=== PATIENT | female | born 1970 | race American Indian/Alaskan Native ===

== ENCOUNTER 2019-09-27 13:02 | Inpatient (IN) | payer MEDICAID ==
[2019-09-27] MEDS ORDERED: Sodium Chloride 0.9% 1,000 ML IV ONE (13:32)
--- NOTE | 2019-09-27 13:35 | EDM.PDOC ---
ED HPI GENERAL MEDICAL PROBLEM - General Chief Complaint: Diabetic Complaint Stated Complaint: DIABETIC COMPLICATIONS Time Seen by Provider: 09/27/19 13:20 Source of Information: Reports: Patient History Limitations: Reports: No Limitations - History of Present Illness INITIAL COMMENTS - FREE TEXT/NARRATIVE: This 49 yo female patient was sent to the ED by [facility] due to elevated blood sugar levels, medication non-compliance, and a UTI. According to the patient, she has not been feeling well for the past 1 1/2 weeks. The patient reports she last took her medications 4 days ago. The patient report she felt like she had a cold, but was not getting any better. The patient reports she currently feels dehydrated. The patient reports she has had a fever at home, but does not have a thermometer. The patient last checked her blood sugar last Thursday (patient reports it was "like 300 - 400" at that time). Duration: Week(s):, Constant, Getting Worse Location: Reports: Generalized Quality: Reports: Ache Severity: Moderate Improves with: Reports: None Worsens with: Reports: None Context: Reports: Other Associated Symptoms: Reports: No Other Symptoms - Related Data Allergies Allergy/AdvReac Type Severity Reaction Status Date / Time No Known Allergies Allergy Verified 09/27/19 13:08 Home Meds: Home Meds Insulin Detemir [Levemir Flextouch] 30 unit SQ BEDTIME 05/11/15 [History] Novalog Insulin 12 units SQ TID 05/11/15 [History] atorvaSTATin [Lipitor] 15 mg PO BEDTIME 09/27/19 [History] lisinopriL [Lisinopril] 10 mg PO DAILY 09/27/19 [History] metFORMIN HCl [Metformin HCl ER] 1,000 mg PO DAILY 09/27/19 [History] Past Medical History HEENT History: Reports: Impaired Vision Cardiovascular History: Reports: None Respiratory History: Reports: None Gastrointestinal History: Reports: None Genitourinary History: Reports: None FIGHTER PILOT History: Reports: None Musculoskeletal History: Reports: None Neurological History: Reports: None Psychiatric History: Reports: None Endocrine/Metabolic History: Reports: Diabetes, Type II Hematologic History: Reports: None Immunologic History: Reports: None Oncologic (Cancer) History: Reports: None Dermatologic History: Reports: None - Infectious Disease History Infectious Disease History: Reports: None - Past Surgical History Head Surgeries/Procedures: Reports: None Social & Family History - Family History Family Medical History: Noncontributory - Tobacco Use Smoking Status *Q: Never Smoker Second Hand Smoke Exposure: No - Caffeine Use Caffeine Use: Reports: Tea - Recreational Drug Use Recreational Drug Use: No ED ROS GENERAL - Review of Systems Review Of Systems: Comprehensive ROS is negative, except as noted in HPI. ED EXAM GENERAL NO PERIP PULSE - Physical Exam Exam: See Below Exam Limited By: No Limitations General Appearance: Alert, WD/WN, Moderate Distress Eye Exam: Bilateral Eye: EOMI, Normal Inspection, PERRL Ears: Normal External Exam, Normal Canal, Hearing Grossly Normal, Normal TMs Nose: Normal Inspection, Normal Mucosa, No Blood Throat/Mouth: Normal Inspection, Normal Lips, Normal Teeth, Normal Gums, Normal Oropharynx, Normal Voice, No Airway Compromise Head: Atraumatic, Normocephalic Neck: Normal Inspection, Supple, Non-Tender, Full Range of Motion Respiratory/Chest: No Respiratory Distress, Lungs Clear, Normal Breath Sounds, No Accessory Muscle Use, Chest Non-Tender Cardiovascular: Normal Peripheral Pulses, Regular Rate, Rhythm, No Edema, No Gallop, No JVD, No Murmur, No Rub GI/Abdominal: Normal Bowel Sounds, Soft, Non-Tender, No Organomegaly, No Distention, No Abnormal Bruit, No Mass (Female) Exam: Deferred Rectal (Female) Exam: Deferred Back Exam: Normal Inspection, Full Range of Motion, NT Extremities: Normal Inspection, Normal Range of Motion, Non-Tender, Normal Capillary Refill, No Pedal Edema Neurological: Alert, Oriented, CN II-XII Intact, Normal Cognition, Normal Gait, Normal Reflexes, No Motor/Sensory Deficits Psychiatric: Normal Affect, Normal Mood Skin Exam: Warm, Dry, Intact, Normal Color, No Rash Lymphatic: No Adenopathy Course - Vital Signs Last Recorded V/S: Last Vital Signs Temp 36.2 C 09/27/19 13:11 Pulse 100 09/27/19 13:11 Resp 16 09/27/19 13:11 BP 112/80 09/27/19 13:11 Pulse Ox 100 09/27/19 13:11 - Orders/Labs/Meds Orders: Active Orders 24 hr Category Date Time Status Admission Diagnosis [ADT] Urgent ADT 09/27/19 14:26 Ordered Admission Status [Patient Status] [ADT] Routine ADT 09/27/19 14:26 Ordered CULTURE BLOOD [BC] Stat Lab 09/27/19 13:23 Results CULTURE URINE [RM] Stat Lab 09/27/19 13:23 Received Sodium Chloride 0.9% [Normal Saline] 1,000 ml Med 09/27/19 13:32 Active IV .BOLUS Medication Orders Sodium Chloride (Normal Saline) 1,000 mls @ 999 mls/hr IV .BOLUS ONE Stop: 09/27/19 14:32 Last Admin: 09/27/19 13:41 Dose: 999 mls/hr Labs: Laboratory Tests 09/27/19 09/27/19 09/27/19 Range/Units 13:23 13:23 13:23 WBC (5.0-10.0) 10^3/uL RBC (4.2-5.4) 10^6/uL Hgb (12.0-16.0) g/dL Hct (37.0-47.0) % MCV (80-100) fL MCH (27.0-34.0) pg MCHC (33.0-35.0) g/dL Plt Count (150-450) 10^3/uL Neut % (Auto) (42.2-75.2) % Lymph % (Auto) (20.5-50.1) % Petroleum % (Auto) (2-8) % Eos % (Auto) (1.0-3.0) % Baso % (Auto) (0.0-1.0) % ABG pH (7.35-7.45) ABG pCO2 (35-45) mmHg ABG pO2 (70-100) mmHg ABG HCO3 (22-26) mmol/L ABG O2 Saturation (95-100) % ABG Base Excess ((-2)-(+3)) mmol/L Chin Test O2 Delivery Device Oxygen Flow Rate Sodium (135-145) mmol/L Potassium (3.6-5.0) mmol/L Chloride (101-111) mmol/L Carbon Dioxide (21.0-31.0) mmol/L Anion Gap BUN (7-18) mg/dL Creatinine (0.6-1.3) mg/dL Est Cr Clr Drug Dosing mL/min Estimated GFR (MDRD) BUN/Creatinine Ratio Glucose (74-105) mg/dL Lactic Acid 1.5 (0.5-2.2) mmol/L Calcium (8.4-10.2) mg/dl Total Bilirubin (0.2-1.0) mg/dL AST (10-42) IU/L ALT (10-60) IU/L Alkaline Phosphatase (42-121) IU/L Total Protein (6.7-8.2) g/dl Albumin (3.2-5.5) g/dl Globulin Albumin/Globulin Ratio Urine Color Yellow (YELLOW) Urine Appearance Cloudy (CLEAR) Urine pH 5.5 (5.0-9.0) Ur Specific [place] 1.010 (1.005-1.030) Urine Protein Trace H (NEGATIVE) Urine Glucose (UA) 500 H (NEGATIVE) Urine Ketones >=160 H (NEGATIVE) Urine Occult Blood Moderate H (NEGATIVE) Urine Nitrite Positive H (NEGATIVE) Urine Bilirubin Negative (NEGATIVE) Urine Urobilinogen 0.2 (0.2-1.0) mg/dL Ur Leukocyte Esterase Small H (NEGATIVE) Urine RBC 5-10 H /HPF Urine WBC Semi-packed H (0-5/HPF) /HPF Ur Epithelial Cells Rare (NOT SEEN) /HPF Urine Bacteria Moderate H (0-FEW/HPF) /HPF Urine Mucus Rare (NOT SEEN) /LPF Urine Opiates Screen Negative (NEGATIVE) Ur Oxycodone Screen Negative (NEGATIVE) Urine Methadone Screen Negative (NEGATIVE) Ur Barbiturates Screen Negative (NEGATIVE) U Tricyclic Antidepress Negative (NEGATIVE) Ur Phencyclidine Scrn Negative (NEGATIVE) Ur Amphetamine Screen Negative (NEGATIVE) U Methamphetamines Scrn Negative (NEGATIVE) Urine MDMA Screen Negative (NEGATIVE) U Benzodiazepines Scrn Negative (NEGATIVE) Urine Cocaine Screen Negative (NEGATIVE) U Marijuana (THC) Screen Negative (NEGATIVE) Ketones 09/27/19 09/27/19 09/27/19 Range/Units 13:23 13:23 13:23 WBC 18.6 H (5.0-10.0) 10^3/uL RBC 4.26 (4.2-5.4) 10^6/uL Hgb 10.8 L (12.0-16.0) g/dL Hct 32.2 L (37.0-47.0) % MCV 75.6 L (80-100) fL MCH 25.4 L (27.0-34.0) pg MCHC 33.5 (33.0-35.0) g/dL Plt Count 392 (150-450) 10^3/uL Neut % (Auto) 84.4 H (42.2-75.2) % Lymph % (Auto) 8.7 L (20.5-50.1) % Petroleum % (Auto) 6.2 (2-8) % Eos % (Auto) 0.5 L (1.0-3.0) % Baso % (Auto) 0.2 (0.0-1.0) % ABG pH (7.35-7.45) ABG pCO2 (35-45) mmHg ABG pO2 (70-100) mmHg ABG HCO3 (22-26) mmol/L ABG O2 Saturation (95-100) % ABG Base Excess ((-2)-(+3)) mmol/L Chin Test O2 Delivery Device Oxygen Flow Rate Sodium 124 L (135-145) mmol/L Potassium 3.0 L (3.6-5.0) mmol/L Chloride 88 L (101-111) mmol/L Carbon Dioxide 16.0 L (21.0-31.0) mmol/L Anion Gap 23.0 BUN 29 H (7-18) mg/dL Creatinine 1.2 (0.6-1.3) mg/dL Est Cr Clr Drug Dosing 59.92 mL/min Estimated GFR (MDRD) 48 BUN/Creatinine Ratio 24.16 Glucose 492 H* (74-105) mg/dL Lactic Acid (0.5-2.2) mmol/L Calcium 8.5 (8.4-10.2) mg/dl Total Bilirubin 1.3 H (0.2-1.0) mg/dL AST 11 (10-42) IU/L ALT 13 (10-60) IU/L Alkaline Phosphatase 183 H (42-121) IU/L Total Protein 8.1 (6.7-8.2) g/dl Albumin 2.9 L (3.2-5.5) g/dl Globulin 5.2 Albumin/Globulin Ratio 0.56 Urine Color (YELLOW) Urine Appearance (CLEAR) Urine pH (5.0-9.0) Ur Specific [place] (1.005-1.030) Urine Protein (NEGATIVE) Urine Glucose (UA) (NEGATIVE) Urine Ketones (NEGATIVE) Urine Occult Blood (NEGATIVE) Urine Nitrite (NEGATIVE) Urine Bilirubin (NEGATIVE) Urine Urobilinogen (0.2-1.0) mg/dL Ur Leukocyte Esterase (NEGATIVE) Urine RBC /HPF Urine WBC (0-5/HPF) /HPF Ur Epithelial Cells (NOT SEEN) /HPF Urine Bacteria (0-FEW/HPF) /HPF Urine Mucus (NOT SEEN) /LPF Urine Opiates Screen (NEGATIVE) Ur Oxycodone Screen (NEGATIVE) Urine Methadone Screen (NEGATIVE) Ur Barbiturates Screen (NEGATIVE) U Tricyclic Antidepress (NEGATIVE) Ur Phencyclidine Scrn (NEGATIVE) Ur Amphetamine Screen (NEGATIVE) U Methamphetamines Scrn (NEGATIVE) Urine MDMA Screen (NEGATIVE) U Benzodiazepines Scrn (NEGATIVE) Urine Cocaine Screen (NEGATIVE) U Marijuana (THC) Screen (NEGATIVE) Ketones Positive 09/27/19 Range/Units 14:05 WBC (5.0-10.0) 10^3/uL RBC (4.2-5.4) 10^6/uL Hgb (12.0-16.0) g/dL Hct (37.0-47.0) % MCV (80-100) fL MCH (27.0-34.0) pg MCHC (33.0-35.0) g/dL Plt Count (150-450) 10^3/uL Neut % (Auto) (42.2-75.2) % Lymph % (Auto) (20.5-50.1) % Petroleum % (Auto) (2-8) % Eos % (Auto) (1.0-3.0) % Baso % (Auto) (0.0-1.0) % ABG pH 7.38 (7.35-7.45) ABG pCO2 25 L (35-45) mmHg ABG pO2 100 (70-100) mmHg ABG HCO3 14.7 L (22-26) mmol/L ABG O2 Saturation 97 (95-100) % ABG Base Excess -9 L ((-2)-(+3)) mmol/L Chin Test Rb O2 Delivery Device Room air Oxygen Flow Rate 0 Sodium (135-145) mmol/L Potassium (3.6-5.0) mmol/L Chloride (101-111) mmol/L Carbon Dioxide (21.0-31.0) mmol/L Anion Gap BUN (7-18) mg/dL Creatinine (0.6-1.3) mg/dL Est Cr Clr Drug Dosing mL/min Estimated GFR (MDRD) BUN/Creatinine Ratio Glucose (74-105) mg/dL Lactic Acid (0.5-2.2) mmol/L Calcium (8.4-10.2) mg/dl Total Bilirubin (0.2-1.0) mg/dL AST (10-42) IU/L ALT (10-60) IU/L Alkaline Phosphatase (42-121) IU/L Total Protein (6.7-8.2) g/dl Albumin (3.2-5.5) g/dl Globulin Albumin/Globulin Ratio Urine Color (YELLOW) Urine Appearance (CLEAR) Urine pH (5.0-9.0) Ur Specific [place] (1.005-1.030) Urine Protein (NEGATIVE) Urine Glucose (UA) (NEGATIVE) Urine Ketones (NEGATIVE) Urine Occult Blood (NEGATIVE) Urine Nitrite (NEGATIVE) Urine Bilirubin (NEGATIVE) Urine Urobilinogen (0.2-1.0) mg/dL Ur Leukocyte Esterase (NEGATIVE) Urine RBC /HPF Urine WBC (0-5/HPF) /HPF Ur Epithelial Cells (NOT SEEN) /HPF Urine Bacteria (0-FEW/HPF) /HPF Urine Mucus (NOT SEEN) /LPF Urine Opiates Screen (NEGATIVE) Ur Oxycodone Screen (NEGATIVE) Urine Methadone Screen (NEGATIVE) Ur Barbiturates Screen (NEGATIVE) U Tricyclic Antidepress (NEGATIVE) Ur Phencyclidine Scrn (NEGATIVE) Ur Amphetamine Screen (NEGATIVE) U Methamphetamines Scrn (NEGATIVE) Urine MDMA Screen (NEGATIVE) U Benzodiazepines Scrn (NEGATIVE) Urine Cocaine Screen (NEGATIVE) U Marijuana (THC) Screen (NEGATIVE) Ketones Meds: Medications Generic Name Dose Route Start Last Admin Trade Name Freq PRN Reason Stop Dose Admin Sodium Chloride 1,000 mls @ 999 mls/hr 09/27/19 13:32 09/27/19 13:41 Normal Saline IV 09/27/19 14:32 999 mls/hr .BOLUS ONE Administration Discontinued Medications Generic Name Dose Route Start Last Admin Trade Name Freq PRN Reason Stop Dose Admin Insulin Human Regular 10 unit 09/27/19 14:26 Humulin R IV 09/27/19 14:27 ONETIME ONE Departure - Departure Time of Disposition: 14:29 Disposition: Admitted As Inpatient 67 Condition: Poor Clinical Impression: DKA (diabetic ketoacidoses) Qualifiers: Diabetes mellitus type: type 2 Diabetes mellitus complication detail: without coma Qualified Code(s): E11.10 - Type 2 diabetes mellitus with ketoacidosis without coma UTI (urinary tract infection) Qualifiers: Urinary tract infection type: site unspecified Hematuria presence: with hematuria Qualified Code(s): N39.0 - Urinary tract infection, site not specified ; R31.9 - Hematuria, unspecified - Discharge Information *PRESCRIPTION DRUG MONITORING PROGRAM REVIEWED*: Not Applicable *COPY OF PRESCRIPTION DRUG MONITORING REPORT IN PATIENT DAYANNA: Not Applicable Care Plan Goals: Discussed the patient's history, examination, lab and x-ray results with Dr. Fraser. Dr. Fraser accepted the patient for continued evaluation and management. The patient will be admitted to [facility] in [place]. Sepsis Event Note - Evaluation Sepsis Screening Result: No Definite Risk - Focused Exam Vital Signs: Vital Signs Temp Pulse Resp BP Pulse Ox 09/27/19 13:11 36.2 C 100 16 112/80 100 Date Exam was Performed: 09/27/19 Time Exam was Performed: 14:28 - My Orders Last 24 Hours: My Active Orders 09/27/19 13:23 CULTURE BLOOD [BC] Stat CULTURE URINE [RM] Stat 09/27/19 13:32 Sodium Chloride 0.9% [Normal Saline] 1,000 ml IV .BOLUS 09/27/19 14:26 Admission Diagnosis [ADT] Urgent Admission Status [Patient Status] [ADT] Routine - Assessment/Plan Last 24 Hours: My Active Orders 09/27/19 13:23 CULTURE BLOOD [BC] Stat CULTURE URINE [RM] Stat 09/27/19 13:32 Sodium Chloride 0.9% [Normal Saline] 1,000 ml IV .BOLUS 09/27/19 14:26 Admission Diagnosis [ADT] Urgent Admission Status [Patient Status] [ADT] Routine
[2019-09-27 14:13] LABS: O2 DELIVERY DEVICE ROOM AIR
[2019-09-27 14:14] LABS: BASE EXCESS ARTERIAL -9 mmol/L ((-2)-(+3)); BICARBONATE,ARTERIAL 14.7 mmol/L (22-26); O2 SATURATION ARTERIAL 97 % (95-100); PCO2 ARTERIAL 25 mmHg (35-45); PO2 ARTERIAL 100 mmHg (70-100)
[2019-09-27 14:17] LABS: ALLEN TEST RB; O2 FLOW RATE 0
[2019-09-27] MEDS ORDERED: Insulin Regular, Human 100 Units/ML 3 ML Vial IV ONE (14:26)
[2019-09-27] MEDS ORDERED: Ondansetron 4 MG Tab.DIS PO PRN (16:03)
[2019-09-27] MEDS ORDERED: Ondansetron 4 MG/2 ML SDV IVPUSH PRN (16:03)
[2019-09-27] MEDS ORDERED: 50% Dextrose in Water 50 ML Syringe IVPUSH PRN (16:07)
[2019-09-27] MEDS: Sodium Chloride 0.9% with KCl 1,000 ML IV SCH (16:36)
[2019-09-27] MEDS: cefTRIAXone 1 GM in Sodium Chloride 0.9% 50 ML IV SCH (16:37)
--- NOTE | 2019-09-27 17:00 | HP ---
CHIEF COMPLAINT: Increasing weakness, tiredness, fevers, chills at home. HISTORY OF PRESENTING ILLNESS: Ms. Mary Basurto is a 49-year-old female with medical history significant for type 2 diabetes mellitus, has been feeling sick for the last 3 to 4 days. [facility] and noted to have abnormal labs and got transferred to ER where she was noted to have uncontrolled diabetes along with hyponatremia, hypokalemia, and urinary tract infection, needing admission to the hospital. At this time, the patient says that for the last 4 days, the patient has been feeling sick. She was having fevers and chills. She did not take her temperature at home. She also had nausea and vomiting. She had multiple episodes of vomiting in the last 2 days. No diarrhea. That is why, she was not able to keep anything down and she quit taking her diabetic medications. She denies any chest pains now. No shortness of breath. No cough, no sputum in the last few days. No complaints of abdominal pain for now. The patient denied any history of chest pains on exertion, but has dyspnea on exertion. No history of orthopnea or paroxysmal nocturnal dyspnea. The patient denied any history of hematemesis, hematochezia, or melenic stools. Normal bowel and bladder habits otherwise. REVIEW OF SYSTEMS: A complete review of system including skin, ear, nose, and throat, cardiovascular system, respiratory system, gastrointestinal system, genitourinary system, hematology, oncology, neurology, allergy, immunology, constitutional were all evaluated and were negative except for the above-said notes. PAST MEDICAL HISTORY: Significant for diabetes. PAST SURGICAL HISTORY: Significant for and right knee surgery. FAMILY HISTORY: The patient does not know much about her family history. 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 No history of drug abuse. ALLERGIES: No known drug allergies. HOME MEDICATIONS: Include metformin 1000 mg daily, lisinopril 10 mg daily, Lipitor at bedtime, NovoLog 12 units 3 times a day with each meals, Levemir 30 units at bedtime. PHYSICAL EXAMINATION: Vital Signs: Temperature of 98, pulse of 96, blood pressure 120/63, respiratory rate of 18, saturating at 100% on room air. General Appearance: The patient is alert and oriented to time, place, and person. Follows commands spontaneously. Cardiovascular System: S1 and S2 heard with normal intensity. No gallops. Respiratory System: Clear to auscultation bilaterally. No wheeze. No crepitations. Abdomen: Soft. Bowel sounds positive. Nontender. No rigidity. Extremities: No edema in bilateral lower extremities. Neurologic: No gross focal neurological deficit. LABORATORY DATA: WBC 18.6, hemoglobin 10.8, hematocrit 32.2, platelet count 392. MCV 75.6, MCH 25.4. Sodium 124, potassium 3, chloride 88, bicarb 16, BUN 29, creatinine 1.2, glucose 492, anion gap 23. Arterial blood gas analysis shows pH of 7.38, pCO2 of 25, PO2 of 100, bicarb of 14.7. Lactic acid 1.5. Urinalysis positive for nitrites, small leukocyte esterase, 5 to 10 rbc's, 100 wbc's, moderate bacteria, greater than 160 ketones, 500 glucose. Urine toxicology screen negative. ASSESSMENT: 1. Urinary tract infection. 2. Possible sepsis. 3. Type 2 diabetes mellitus, uncontrolled. 4. Metabolic acidosis. 5. Hyponatremia. 6. Hypokalemia. 7. Anemia. PLAN: 1. Urinary tract infection. The patient presents with 4 days of fevers and chills, and noted to have urinary tract infection as per urinalysis. We will obtain blood cultures, urine culture. We will start her on IV ceftriaxone and we will closely follow. 2. Hyponatremia. The patient was noted to have a sodium of 124. This could be pseudohyponatremia from hyperglycemia and also from dehydration, hypovolemic hyponatremia from nausea and vomiting. We will keep her hydrated with IV fluids. We will recheck a basic metabolic panel later in the evening and also in the morning and we will closely follow. Have her on normal saline. 3. Hypokalemia. We will replace with oral and IV potassium chloride. We will follow with the BMP. 4. Anemia. The patient's hemoglobin down to 10.8 and also decreased MCV and MCH consistent with hypochromic anemia. Unsure if the patient has an iron deficiency. We will check for iron, B12, and folate levels. We will closely follow. 5. Possible sepsis. The patient is noted to have leukocytosis. She has been complaining of having fevers and chills and was little tachycardic at the time of admission, but her lactic acid is within normal limits. We will follow with blood cultures and follow serial lactic acid levels. 6. Type 2 diabetes mellitus, uncontrolled. The patient was noted to have elevated blood sugar. She did receive IV insulin. We will check blood sugars 4 times a day. Have her on correction dose insulin. We will resume her Levemir and NovoLog insulin. Hold the metformin for now. We will get a hemoglobin A1c. 7. Code status. The patient wants to be full code. 8. Discussed with David Valdes, the ER staff, regarding the plan of care. Reviewed the labs and medications. Reviewed the old charts. [facility] /[id number] MTDD
[2019-09-27] MEDS: Insulin Lispro 100 Units/ML 3 ML Vial SUBCUT SCH ×2 (17:04→21:23)
[2019-09-27] MEDS: Potassium Chloride 10 MEQ Tab.ER PO SCH (17:04)
[2019-09-27] MEDS: Acetaminophen 325 MG Tab PO PRN (18:20)
[2019-09-27] MEDS ORDERED: Acetaminophen/HYDROcodone 325-5 MG Tab PO PRN (19:48)
[2019-09-27] MEDS: Acetaminophen/HYDROcodone 325-5 MG Tab PO PRN (20:09)
[2019-09-27 20:52] LABS: ANION GAP 19.4; CHLORIDE,CL 96 mmol/L (101-111); SODIUM,NA 128 mmol/L (135-145)
[2019-09-27] MEDS: busPIRone 5 MG Tab PO SCH (21:19)
[2019-09-27] MEDS: atorvaSTATin 10 MG Tab PO SCH (21:19)
[2019-09-27] MEDS: Insulin Glarg,Human.Rec.Analog 100 UNIT/ML ML SUBCUT SCH (21:21)
[2019-09-28] MEDS: Sodium Chloride 0.9% with KCl 1,000 ML IV SCH (01:03)
[2019-09-28] MEDS: Acetaminophen/HYDROcodone 325-5 MG Tab PO PRN ×3 (04:42→20:54)
[2019-09-28 07:01] LABS: ANION GAP 15.3; CHLORIDE,CL 100 mmol/L (101-111); SODIUM,NA 129 mmol/L (135-145)
[2019-09-28] MEDS: Insulin Lispro 100 Units/ML 3 ML Vial SUBCUT SCH ×7 (08:28→21:17)
[2019-09-28] MEDS: Potassium Chloride 10 MEQ Tab.ER PO SCH ×2 (08:30→17:17)
[2019-09-28] MEDS: Enoxaparin 40 MG/0.4 ML Syringe SUBCUT SCH (08:30)
[2019-09-28] MEDS: DULoxetine 30 MG Cap PO SCH (08:30)
[2019-09-28] MEDS: Iron Polysaccharides Complex 150 MG Cap PO SCH (08:30)
[2019-09-28] MEDS: busPIRone 5 MG Tab PO SCH ×2 (08:30→20:56)
[2019-09-28] MEDS ORDERED: Lactated Ringers 1,000 ML IV SCH (09:30)
[2019-09-28] MEDS: Acetaminophen 325 MG Tab PO PRN (10:12)
--- NOTE | 2019-09-28 11:34 | PN ---
DATE: 09/28/2019 HISTORY OF PRESENT ILLNESS: The patient is a 49-year-old lady with history of diabetes mellitus, hyperlipidemia, she was admitted because of urinary tract infection and possible sepsis and ketoacidosis. The patient this morning is slightly better and appetite is slowly picking up, but she still did not have any good night's sleep last night. She denies any chest pain, shortness of breath, and so far nausea and vomiting have improved. LABORATORY DATA: Lab workup this morning; WBC 17.6, hemoglobin is 9, hematocrit is 27.1, platelet is 434. Chem 6: Sodium is 129, potassium is 4.3, chloride of 100, carbon dioxide is 18, glucose is 270. The rest of the panel unremarkable. Urine culture preliminary reading is 100,000 colonies gram-negative rods and ID and sensitivity to follow. Blood culture is pending. OBJECTIVE: Vital Signs: Blood pressure is 112/69, pulse of 100, respirations 20, and saturation 100% on room air. Heart: Regular rate and rhythm. Normal S1 and S2. No gallops. No rubs. Lungs: Diminished breath sounds on both bases. No crackles. No wheezing. Abdomen: Soft. There is moderate tenderness on the left lumbar area. No rebound. Bowel sounds positive. Extremities: Negative for any significant pedal edema. No calf tenderness. MEDICATIONS: Reviewed. PLAN: We will continue with her present management and continue with IV antibiotics. We will recheck a CBC and basic metabolic panel in a.m. We will also increase her IV fluids to 150 mL/h. [facility] /[id number]
[2019-09-28] MEDS: Dextrose 5%-Lactated Ringers 1,000 ML IV SCH ×2 (13:23→20:57)
[2019-09-28] MEDS: cefTRIAXone 1 GM in Sodium Chloride 0.9% 50 ML IV SCH (17:17)
[2019-09-28] MEDS: atorvaSTATin 10 MG Tab PO SCH (20:54)
[2019-09-28] MEDS: Insulin Glarg,Human.Rec.Analog 100 UNIT/ML ML SUBCUT SCH (21:16)
[2019-09-29] MEDS: Dextrose 5%-Lactated Ringers 1,000 ML IV SCH (03:38)
[2019-09-29 06:52] LABS: ANION GAP 12.4; CHLORIDE,CL 102 mmol/L (101-111); SODIUM,NA 131 mmol/L (135-145)
[2019-09-29] MEDS: Potassium Chloride 10 MEQ Tab.ER PO SCH ×2 (09:12→17:32)
[2019-09-29] MEDS: DULoxetine 30 MG Cap PO SCH (09:13)
[2019-09-29] MEDS: busPIRone 5 MG Tab PO SCH ×2 (09:13→21:47)
[2019-09-29] MEDS: Iron Polysaccharides Complex 150 MG Cap PO SCH (09:14)
[2019-09-29] MEDS: Enoxaparin 40 MG/0.4 ML Syringe SUBCUT SCH (09:14)
[2019-09-29] MEDS: Insulin Lispro 100 Units/ML 3 ML Vial SUBCUT SCH ×7 (09:28→21:46)
[2019-09-29] MEDS: Acetaminophen/HYDROcodone 325-5 MG Tab PO PRN ×2 (09:29→17:32)
--- NOTE | 2019-09-29 10:48 | PN ---
DATE: 09/29/2019 SUBJECTIVE: The patient this morning is feeling much better. Appetite has improved, but she is still complaining of being sore with her body, but she denies any chest pain, shortness of breath, abdominal pain, nausea, vomiting, or any other complaints. LABORATORY DATA: Lab workup this morning: CBC; WBC is 15.7 (improving), hemoglobin is 8.6, hematocrit is 25.9, platelet is 479. Basic metabolic panel: Sodium is 131, potassium is 4.4, carbon dioxide is 21, which is now within normal limits, and glucose is 316. Urine culture is showing E. coli susceptible to Rocephin and most antibiotics. OBJECTIVE: Vital Signs: Blood pressure is 113/63, pulse of 79, respiration of 18, pulse of 100, respiration of 18, and temperature is 98.3. Heart: Regular rate and rhythm. Normal S1 and S2. No gallops. No rubs. Lungs: Equal bilaterally. No crackles. No wheezing. Abdomen: Soft, nontender. Bowel sounds positive. Extremities: Negative for any significant pedal edema. No calf tenderness. PLAN: We will continue with her present management. We will discontinue her IV fluid, and if she continues to do well, anticipate discharge in a day or two. [facility] /[id number]
[2019-09-29] MEDS: cefTRIAXone 1 GM in Sodium Chloride 0.9% 50 ML IV SCH (17:33)
[2019-09-29] MEDS ORDERED: Sodium Chloride 0.9% 10 ML Syringe FLUSH PRN (17:41)
[2019-09-29] MEDS: Insulin Glarg,Human.Rec.Analog 100 UNIT/ML ML SUBCUT SCH (21:45)
[2019-09-29] MEDS: atorvaSTATin 10 MG Tab PO SCH (22:14)
[2019-09-30] MEDS: Acetaminophen/HYDROcodone 325-5 MG Tab PO PRN ×3 (02:12→20:54)
[2019-09-30] MEDS: busPIRone 5 MG Tab PO SCH ×2 (08:50→21:00)
[2019-09-30] MEDS: Iron Polysaccharides Complex 150 MG Cap PO SCH (08:51)
[2019-09-30] MEDS: DULoxetine 30 MG Cap PO SCH (08:51)
[2019-09-30] MEDS: Potassium Chloride 10 MEQ Tab.ER PO SCH ×2 (08:51→19:06)
[2019-09-30] MEDS: Insulin Lispro 100 Units/ML 3 ML Vial SUBCUT SCH ×7 (08:52→21:19)
[2019-09-30] MEDS: Enoxaparin 40 MG/0.4 ML Syringe SUBCUT SCH (08:52)
--- NOTE | 2019-09-30 10:55 | PN ---
DATE: 09/30/2019 SUBJECTIVE: The patient is doing fairly well except that she is complaining of some pain on both lower extremities and feet from her neuropathy, but so far, has not had any problems with abdominal pain and nausea and vomiting, and she had a good night's sleep. OBJECTIVE: Vital Signs: Blood pressure is 98/60, pulse of 80, respirations 20, and temperature of 98.2. Heart: Regular rate and rhythm. Normal S1 and S2. No gallops. No rubs. Lungs: Equal bilaterally. No crackles. No wheezing. Abdomen: Soft, nontender. Bowel sounds positive. Extremities: Negative for any pedal edema. No calf tenderness. Dorsalis pedis pulse is faint bilaterally. No signs of cellulitis. PLAN: We will continue with her present management on IV antibiotics and we will recheck CBC and basic metabolic panel in a.m. and anticipate discharge in a.m. [facility] /[id number]
[2019-09-30] MEDS: cefTRIAXone 1 GM in Sodium Chloride 0.9% 50 ML IV SCH (18:23)
[2019-09-30] MEDS: atorvaSTATin 10 MG Tab PO SCH (20:55)
[2019-09-30] MEDS: Insulin Glarg,Human.Rec.Analog 100 UNIT/ML ML SUBCUT SCH (21:20)
[2019-10-01 07:07] LABS: ANION GAP 14.7; CHLORIDE,CL 101 mmol/L (101-111); SODIUM,NA 136 mmol/L (135-145)
[2019-10-01 08:13] VITALS: PULSE 92
[2019-10-01] MEDS: busPIRone 5 MG Tab PO SCH (09:14)
[2019-10-01] MEDS: Iron Polysaccharides Complex 150 MG Cap PO SCH (09:16)
[2019-10-01] MEDS: DULoxetine 30 MG Cap PO SCH (09:16)
[2019-10-01] MEDS: Potassium Chloride 10 MEQ Tab.ER PO SCH (09:17)
[2019-10-01] MEDS: Insulin Lispro 100 Units/ML 3 ML Vial SUBCUT SCH ×4 (09:18→13:04)
--- NOTE | 2019-10-01 09:40 | DISCH ---
FINAL DIAGNOSES: 1. Urinary tract infection with Escherichia coli. 2. Systemic inflammatory response syndrome. 3. Metabolic acidosis. 4. Type 2 diabetes mellitus. 5. Hypokalemia. 6. Anemia. BRIEF HISTORY OF PRESENT ILLNESS: Please see H and P. PERTINENT LABS, X-RAY AND OTHER TESTS ON ADMISSION: See H and P. HOSPITAL COURSE: The patient was admitted to General Medicine floor. She was started on IV antibiotics, Rocephin, and was also given IV fluids. Potassium was also repleted and blood cultures were sent, but this came back negative. Urine cultures came back positive for Escherichia coli and this was susceptible to most antibiotics. During the hospitalization, she did well, nausea and vomiting improved, and her electrolytes and bicarbonate improved. Rest of the hospital course was unremarkable. She was subsequently discharged. CONDITION ON DISCHARGE: Improved. DISCHARGE INSTRUCTIONS: We will put her on doxycycline 100 mg b.i.d. for the next 5 days and we will resume her home medication and she is going to follow up with her primary care physician in 7 to 10 days. [facility] /[id number]
--- NOTE | 2019-10-01 09:46 | PN ---
DATE: 10/01/2019 SUBJECTIVE: The patient continues to do well and she slept well last night, and this morning, she is feeling good. She denies any headache, chest pain, shortness of breath, abdominal pain, fever, chills, nor any other complaints. LABORATORY DATA: Lab workup this morning; WBC is 10.5, hemoglobin is 8.9, hematocrit is 28.2, platelet is 755. Chem-6: Glucose is 170. The rest of the panel unremarkable. OBJECTIVE: Vital Signs: Blood pressure is 123/76, pulse 92, respirations 20, saturations 100% on room air, and temperature is 98.8. Heart: Regular rate and rhythm. Normal S1 and S2. No gallops. No rubs. Lungs: Clear. No crackles. No wheezing. Abdomen: Soft, nontender. Extremities: Negative for any pedal edema. No calf tenderness. PLAN: We will discharge the patient home today, and we will continue with oral antibiotics for her urinary tract infection and this will be tetracycline/doxycycline 100 mg b.i.d. for the next 5 days. We will also resume her home medication. [facility] /[id number]
[2019-10-01] MEDS: Acetaminophen/HYDROcodone 325-5 MG Tab PO PRN (11:32)
[2019-10-01] MEDS: Enoxaparin 40 MG/0.4 ML Syringe SUBCUT SCH (11:34)
[2019-10-01 12:34] VITALS: BP 121/73
== END 2019-10-01 13:30 | disposition home or self-care (01) | DRG 690 ==
LOC: DL.ED 13:02 → UNDOADMIN 14:26 → DL.MS 14:26
PROVIDERS: ADMIT Internal Medicine; ATTEND Internal Medicine
DX: N39.0 Urinary tract infection, site not specified (principal); E87.1 Hypo-osmolality and hyponatremia; E87.2 Acidosis; R65.10 Systemic inflammatory response syndrome (SIRS) of non-infectious origin without acute organ dysfunction; E87.6 Hypokalemia; F17.200 Nicotine dependence, unspecified, uncomplicated; D64.9 Anemia, unspecified; H54.7 Unspecified visual loss; E78.5 Hyperlipidemia, unspecified; B96.20 Unspecified Escherichia coli [E. coli] as the cause of diseases classified elsewhere; Z79.84 Long term (current) use of oral hypoglycemic drugs; Z79.899 Other long term (current) drug therapy
CPT/HCPCS: 36415; 36600; 80048; 80053; 80305-QW; 81001; 82009; 82803; 82962; 83605; 85025; 85027; 87040; 87086; 87088; 87186; 90686; 96361; 96374; 99284; 99285-25; A9270-GY; G0008; J0696; J1650; J1815; J1815-GY; J3480; J7030; J7050; J7120; J7121

== ENCOUNTER 2024-01-09 13:43 | Emergency (ER) | payer OTHER ==
[2024-01-09 14:11] VITALS: BP 93/57; PULSE 96
[2024-01-09 14:35] LABS: HEMATOCRIT 32.5 % (37.0-47.0); MEAN CORPUSCULAR HGB CONC 33.8 g/dL (33.0-35.0); MEAN CORPUSCULAR VOLUME 88.6 fL (80-100); PLATELET COUNT,PLT 513 10^3/uL (150-450); RED BLOOD CELL COUNT 3.67 10^6/uL (4.2-5.4); WHITE BLOOD CELL COUNT,WBC 34.9 10^3/uL (5.0-10.0)
[2024-01-09] MEDS: Sodium Chloride 0.9% 2,000 ML IV ONE (14:36)
[2024-01-09 14:41] LABS: EOSINOPHILS PERCENT AUTO 0.3 % (1.0-3.0); LYMPHOCYTES PERCENT AUTO 3.8 % (20.5-50.1); MONOCYTES PERCENT AUTO 7.6 % (2-8); NEUTROPHILS PERCENT AUTO 88.3 % (42.2-75.2)
[2024-01-09 14:46] LABS: ALANINE AMINOTRANSFERASE,ALT 22 U/L (14-59); ALBUMIN 1.8 g/dL (3.4-5.0); ALKALINE PHOSPHATASE 154 U/L (46-116); ANION GAP 24.1 mEq/L (7-13); ASPARTATE AMNIOTRANSFERASE,AST 20 U/L (15-37); BILIRUBIN TOTAL 0.5 mg/dL (0.2-1.0); BLOOD UREA NITROGEN,BUN 111 mg/dL (7-18); BUN/CREATININE RATIO 23.6 (No establ ref range); CALCIUM 8.6 mg/dL (8.5-10.1); CARBON DIOXIDE,CO2 10 mmol/L (21-32); CHLORIDE,CL 92 mmol/L (98-107); EST CRCL DRUG DOSING (CG) 14.63 mL/min; GLUCOSE RANDOM 228 mg/dL (70-99); POTASSIUM,K 4.1 mmol/L (3.5-5.1); SODIUM,NA 122 mmol/L (136-145)
[2024-01-09 14:48] LABS: A/G RATIO 0.29; ESTIMATED GFR 11 mL/min (>=60)
[2024-01-09 14:51] LABS: KETONES,BLOOD SMALL-20 mg/dL
[2024-01-09 15:13] LABS: CORONAVIRUS COVID-19 NAA NEGATIVE (NEGATIVE); INFLUENZA A NAA NEGATIVE (NEGATIVE); INFLUENZA B NAA NEGATIVE (NEGATIVE); RESPIRATORY SYNCYTIAL VIR NAA NEGATIVE (NEGATIVE)
[2024-01-09 15:27] LABS: INR 1.1 (0.9-1.2)
[2024-01-09] MEDS: Sodium Chloride 0.9% 10 ML Syringe FLUSH PRN (15:33)
[2024-01-09] MEDS: Sodium Chloride 0.9% 1,000 ML IV ONE ×2 (15:34→17:16)
[2024-01-09] MEDS: cefTRIAXone 1 GM Vial IVPUSH ONE (15:34)
[2024-01-09 15:53] LABS: BAND PERCENT MAN 10 %; LYMPHOCYTES PERCENT MAN 4 % (20-50); MONOCYTES PERCENT MAN 9 % (2-8); SEG NEUTROPHILS PERCENT MAN 74 % (42-75)
[2024-01-09 15:58] LABS: AMPHETAMINES,URINE NEGATIVE (NEGATIVE); APPEARANCE,URINE CLOUDY (CLEAR); BARBITURATES,URINE NEGATIVE (NEGATIVE); BENZODIAZEPINE,URINE NEGATIVE (NEGATIVE); BILIRUBIN,URINE NEGATIVE (NEGATIVE); COLOR,URINE YELLOW (YELLOW); GLUCOSE,URINE 100 (NEGATIVE); KETONES,URINE TRACE (NEGATIVE); LEUKOCYTE ESTERASE,URINE LARGE (NEGATIVE); MDMA (ECSTASY), URINE NEGATIVE (NEGATIVE); METHADONE,URINE NEGATIVE (NEGATIVE); METHAMPHETAMINES,URINE NEGATIVE (NEGATIVE); NITRITE,URINE NEGATIVE (NEGATIVE); OCCULT BLOOD,URINE MODERATE (NEGATIVE); OPIATES,URINE NEGATIVE (NEGATIVE); OXYCODONE,URINE NEGATIVE (NEGATIVE); PH,URINE 5.5 (5.0-9.0); PHENCYCLIDINE,URINE NEGATIVE (NEGATIVE); PROTEIN,URINE 30 (NEGATIVE); TCA,URINE NEGATIVE (NEGATIVE); UROBILINOGEN,URINE 0.2 mg/dL (0.2-1.0)
[2024-01-09 16:09] LABS: BACTERIA,URINE MANY /HPF (0-FEW/HPF); EPITHELIAL CELLS,URINE FEW /HPF (NOT SEEN); WBC,URINE >100 /HPF (0-5/HPF)
[2024-01-09 16:10] LABS: MUCUS,URINE FEW /LPF (NOT SEEN)
== END 2024-01-09 18:00 ==
LOC: DL.ED 13:43
DX: A41.9 Sepsis, unspecified organism (principal); N12 Tubulo-interstitial nephritis, not specified as acute or chronic; E11.9 Type 2 diabetes mellitus without complications; Z79.4 Long term (current) use of insulin; Z79.84 Long term (current) use of oral hypoglycemic drugs; Z79.899 Other long term (current) drug therapy
CPT/HCPCS: 0241U; 36415; 71045; 74176; 80053; 80305; 81001; 82009; 82947; 83605; 83690; 84484; 85025; 85610; 87040; 87077; 87086; 87088; 87186; 93005; 96361; 96374; 99285; J0696; J7030; 93010; J3490